=== PATIENT | female | born 1935 | race Caucasian/White ===

== ENCOUNTER → 2017-03-01 14:52 | Outpatient (CLI) | payer MEDICARE | END | disposition home or self-care (01) | LOC: D.RAD 14:52 | DX: M25.571 Pain in right ankle and joints of right foot (principal); M79.604 Pain in right leg ==

== ENCOUNTER → 2017-03-04 13:07 | Outpatient (CLI) | payer MEDICARE, OTHER | END | disposition home or self-care (01) | LOC: D.US 13:00 | DX: M79.662 Pain in left lower leg (principal); M79.661 Pain in right lower leg ==